=== PATIENT | female | born 1990 | race Caucasian/White ===

== ENCOUNTER → 2017-04-26 | Outpatient (CLI) | payer OTHER ==
--- NOTE | 2017-04-26 16:15 | US ---
EXAMINATION TYPE: US abdomen complete DATE OF EXAM: 04/26/2017 COMPARISON: NONE CLINICAL HISTORY: R10.814 Left lower quadrant,R19.04. Patient states having frequent UTI's, NPO EXAM MEASUREMENTS: Liver Length: 15.3 cm Gallbladder Wall: 0.2 cm CBD: 0.3 cm CHD: 0.4 cm Spleen: 12.0 cm Right Kidney: 10.2 x 5.0 x 5.4 cm Left Kidney: 10.3 x 5.4 x 5.9 cm Pancreas: wnl Liver: wnl Gallbladder: wnl Evidence for sonographic Feliz's sign: neg CBD: wnl Spleen: wnl Right Kidney: wnl Left Kidney: wnl Upper IVC: wnl Abd Aorta: No AAA identified IMPRESSION: 1. Normal abdomen ultrasound
== END | disposition home or self-care (01) ==
LOC: RADUSWWP 07:49
PROVIDERS: ATTEND Family Medicine
DX: R10.814 Left lower quadrant abdominal tenderness (principal); R19.04 Left lower quadrant abdominal swelling, mass and lump
CPT/HCPCS: 76700

== ENCOUNTER → 2021-09-28 | Outpatient (CLI) | payer OTHER ==
--- NOTE | 2021-09-28 08:23 | US ---
EXAMINATION TYPE: US thyroid st tissue head/neck DATE OF EXAM: 09/28/2021 COMPARISON: NONE CLINICAL HISTORY: E04.0 NONTOXIC DIFFUSE GOITER. Pt states abnormal thyroid labs GLAND SIZE: Right Lobe: 4.1 x 1.8 x 1.7 cm Overall Parenchyma: heterogenous Left Lobe: 4.4 x 1.5 x 1.4 cm Overall Parenchyma: heterogeneous Isthmus Thickness: 0.3 cm Bilateral neck scanned, no evidence of lymphadenopathy. Bilateral thyroid heterogeneous, no definite nodules visualized. IMPRESSION: 1. Unremarkable thyroid ultrasound
== END | disposition home or self-care (01) ==
LOC: RADUSWWP 06:57
PROVIDERS: ATTEND Family Medicine
DX: E04.0 Nontoxic diffuse goiter (principal)
CPT/HCPCS: 76536

== ENCOUNTER → 2023-01-11 | Outpatient (CLI) | payer OTHER ==
--- NOTE | 2023-01-12 07:52 | XR ---
EXAMINATION TYPE: XR foot complete LT, XR ankle complete LT DATE OF EXAM: 01/11/2023 4:47 PM INDICATION: Patient age:Female; 32 years old; Reason for study: [id number] ANKLE PAIN,FALL; COMPARISON: None TECHNIQUE: The left foot and ankle were examined in the AP, oblique, and lateral projections. FINDINGS: No evidence of any acute osseous pathology. No evidence of soft tissue swelling. Joints are preserve d. Bipartite medial sesamoid. Remote injury to the deltoid ligament suggested. Soft tissue swelling a round the ankle. IMPRESSION: 1. No evidence of acute fracture. 2. Soft tissue swelling around the ankle correlate for underlying ligamentous injury. 3. Remote injury to the deltoid ligament.
== END | disposition home or self-care (01) ==
LOC: RADXRYALE 16:33
PROVIDERS: ATTEND Physician Assistant
DX: M25.572 Pain in left ankle and joints of left foot (principal); M79.89 Other specified soft tissue disorders; W17.89XA Other fall from one level to another, initial encounter